=== PATIENT | male | born 1955 | race Caucasian/White ===

== ENCOUNTER 2017-03-28 13:01 | Emergency (ER) | payer BC ==
[~2017-03-28] VITALS: Ht 188 cm; Wt 133.0 kg
[2017-03-28 13:16] VITALS: BP 122/74; PULSE 106; RESP 16; TEMP 98.2; O2SAT 96
[2017-03-28] MEDS ORDERED: ACETAMINOPHEN/HYDROcodone 325 MG/5 MG TAB PO ONE (13:45)
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
[2017-03-28] MEDS ORDERED: MOBI7.5T PO (16:14)
== END 2017-03-28 16:19 | disposition home or self-care (01) ==
LOC: PHEFT 13:01
DX: S90.02XA Contusion of left ankle, initial encounter (principal); M10.9 Gout, unspecified; V89.9XXA Person injured in unspecified vehicle accident, initial encounter; Z79.899 Other long term (current) drug therapy
CPT/HCPCS: 73610; 99283